=== PATIENT | female | born 1990 | race Caucasian/White ===

== ENCOUNTER 2024-04-16 18:10 | Emergency (ER) | payer OTHER, SELFPAY ==
[2024-04-16 18:23] VITALS: BP 137/59; PULSE 81; RESP 20; TEMP 37.1; O2SAT 99; BMI 31.6
--- NOTE | 2024-04-16 18:33 | DI.US.S_ITS ---
PROCEDURE: US PERIPH VENOUS LOW EXTREM RT INDICATIONS: TENDER LUMP INF/MED THIGH TECHNIQUE: Real-time imaging, as well as color and pulse Doppler interrogation, were performed of the lower extremity deep veins from the inguinal ligament to the popliteal fossa, with documentation of the visualized calf veins. COMPARISON: None. FINDINGS: The common femoral, femoral, popliteal, and the visualized calf veins are normally compressible, and free of intraluminal thrombus. Color and pulse Doppler demonstrate normal phasic intraluminal flow. There is normal augmentation response to distal compression maneuver. Incidental note superficial vein thrombosis in the lateral thigh. IMPRESSION: No findings of lower extremity deep venous thrombosis. Focal superficial thrombophlebitis. Dictated by: Julia Child M.D. on 04/16/2024 at 19:34 Approved by: Julia Child M.D. on 04/16/2024 at 19:35
--- NOTE | 2024-04-16 19:41 | ED_ITS ---
HPI - Extremity Problem General Chief complaint: Extremity Problem,Nontraumatic Stated complaint: 18wk Preg, Bump on R Leg Concerned About Clot Time Seen by Provider: 04/16/24 18:38 Source: patient Mode of arrival: Ambulatory History of Present Illness HPI Narrative: 34-year-old female at 18 weeks gestational age presents for small lump on inner right leg. Patient states that she called the advice line and was told to come in for evaluation of blood clot. Patient denies accident, injury, history of blood clots. Followed this by Daina Bonner CNM Related Data Previous Rx's Medication Instructions Recorded hydrocodone 10 mg-chlorpheniramine 5 ml PO BID #90 mL 10/05/16 8 mg/5 mL oral susp extend.rel 12hr (Tussionex Pennkinetic ER) oseltamivir 75 mg capsule (Tamiflu) 75 mg PO BID #10 caps 10/05/16 Allergies Allergy/AdvReac Type Severity Reaction Status Date / Time amoxicillin [AMOXICILLIN] Allergy Severe ANAPHYLAXIS Unverified 10/24/17 13:05 clavulanic acid Allergy Severe ANAPHYLAXIS Unverified 10/24/17 13:05 [CLAVULANIC ACID] Patient History Social History Smoking Status: Never smoker Smoking Status: Never smoker Substance Use Type: does not use Exam Initial Vital Signs Initial Vital Signs: Vital Signs Temperature 98.7 F 04/16/24 18:23 Pulse Rate 81 04/16/24 18:23 Respiratory Rate 20 04/16/24 18:23 Blood Pressure 137/59 L 04/16/24 18:23 Pulse Oximetry 99 04/16/24 18:23 Oxygen Delivery Method Room Air 04/16/24 18:23 Const: Awake, alert, no acute distress, nontoxic appearing MSK: no edema, full range of motion, pulses equal, marble-sized mobile lump inner R knee Skin: Warm, Dry, intact, no rashes Neuro: AO x3, CN II-XII grossly intact, moves all extremities Course Orders Ordered: ED Orders 04/16/24 18:33 US periph venous low extrem rt Stat Vital Signs Vital signs: Vital Signs - 8 hr 04/16/24 19:50 Pulse Rate 71 Respiratory Rate 16 Blood Pressure 101/56 L Pulse Oximetry 95 Oxygen Delivery Method Room Air MDM - Extremity (Nontraumatic) Imaging Data US - DVT: Radiologist's Impression: PROCEDURE: US PERIPH VENOUS LOW EXTREM RT INDICATIONS: TENDER LUMP INF/MED THIGH TECHNIQUE: Real-time imaging, as well as color and pulse Doppler interrogation, were performed of the lower extremity deep veins from the inguinal ligament to the popliteal fossa, with documentation of the visualized calf veins. COMPARISON: None. FINDINGS: The common femoral, femoral, popliteal, and the visualized calf veins are normally compressible, and free of intraluminal thrombus. Color and pulse Doppler demonstrate normal phasic intraluminal flow. There is normal augmentation response to distal compression maneuver. Incidental note superficial vein thrombosis in the lateral thigh. IMPRESSION: No findings of lower extremity deep venous thrombosis. Focal superficial thrombophlebitis. Dictated by: Julia Child M.D. on 04/16/2024 at 19:34 Approved by: Julia Child M.D. on 04/16/2024 at 19:35 MDM Narrative Medical decision making narrative: Well-appearing patient with isolated, marble-sized lump on inner right knee. Limbs equal in size. US shows no DVT, focal area of superficial thrombophlebitis in area of patient's concern. Discussed case with Dr. Feng of on-call OB, who recommended warm compresses and daily baby aspirin. Patient informed of imaging results and OB recommendations. Will follow up with her ancient art curator. Discharge Plan Departure Patient Disposition: Home Clinical Impression: Superficial thrombophlebitis Instructions: DI for Superficial Thrombophlebitis Activity Restrictions/Additional Instructions: Your ultrasound today shows that you have a very tiny isolated superficial blood clot called ?superficial thrombophlebitis? in 1 of your tiny veins. This usually fixes itself on its own and it was not dangerous or deadly. Are OBGYN on-call recommends daily warm compresses 3-4 times per day and starting a daily baby aspirin. Reach out to your ancient art curator for follow up. Prescriptions: No Action oseltamivir [Tamiflu] 75 MG capsule 75 mg PO BID Qty: 10 0RF hydrocodone-chlorpheniramine [Tussionex Pennkinetic ER] 115 ML suspension,extended rel 12 hr 5 ml PO BID Qty: 90 0RF Referrals: Rach Retana ARNP [Primary Care Provider] - Stand Alone Forms: Patient Portal/API
[2024-04-16 19:50] VITALS: BP 101/56; PULSE 71; RESP 16; O2SAT 95
== END 2024-04-16 19:58 | disposition home or self-care (01) ==
PROVIDERS: Emergency Provider Emergency Medicine; PCP Nurse Practitioner
DX: O22.22 Superficial thrombophlebitis in pregnancy, second trimester (principal); Z3A.18 18 weeks gestation of pregnancy
CPT/HCPCS: 93971; 99281; 99283

== ENCOUNTER → 2024-05-02 08:30 | Outpatient (CLI) | payer OTHER, SELFPAY ==
--- NOTE | 2024-05-02 | DI.US.S_ITS ---
PROCEDURE: US OB >= 14 WEEKS FETUS INDICATIONS: ANATOMY OUTSIDE/PRIOR DATING DATA: Last menstrual period (LMP): 12/20/2023. LMP-based estimated date of delivery (BLAIR): 09/16/2024. First dating scan (date and location): 02/22/2024. Estimated date of delivery (BLAIR) from first dating scan: 09/16/2024. The calculations are made using the working BLAIR of 09/16/2024. TECHNIQUE: Real-time scanning was performed of the fetus, with image documentation and biometric measurements. Endovaginal scanning: No COMPARISON: None. FINDINGS: General: A single living intrauterine gestation is present. Presentation: Vertex. Placenta: Placental position is posterior , without previa. Amniotic fluid index: 13.0 cm, normal range is 5-24 cm. Single deepest vertical pocket is 4.3 cm. heart rate: 136 beats per minute. Maternal cervical canal: 4.9 cm long. Normal lower limit is 2.5 cm. biometrics: Biparietal diameter: 5.0 cm, 21 week 1 day Head circumference: 18.5 cm, 20 week 6 day Abdominal circumference: 15.5 cm, 20 week 5 day Femur length: 3.2 cm, 20 week 0 day Clinically estimated gestational age: 20 week 3 day Composite gestational age from present scan: 20 week 5 day Estimated weight and percentile: 353 g, 45 percentile Anatomic survey: Neuro: Ventricles are non-dilated at less than 10 mm. Cisterna magna is normal at 3-11 mm. Cerebellum is normal in size and morphology. Nuchal skin fold: Normal at less than 6 mm between 14-21 weeks gestational age. Face: Nose and lips, facial profile are normal. Spine: No evidence for spina bifida. Heart: 4-chambered heart is present, with normal ventricular outflow tracts. Diaphragm: Diaphragm is intact. Stomach: Left-sided stomach is present. Kidneys: Left renal caliectasis, 5.1 cm Cord: 3-vessel cord has orthotopic insertion. Bladder: Normal in size. Extremities: All 4 extremities identified. IMPRESSION: Single live intrauterine consistent with 20 week 5 day gestation by current ultrasound. Left renal caliectasis. Remainder of the anatomic survey within normal limits. Approved by: Ke Walter M.D. on 05/02/2024 at 17:16
== END ==
LOC: US 08:30
PROVIDERS: Referring Provider Nurse Practitioner Obstetrics & Gynecology; Visit Provider Nurse Practitioner Obstetrics & Gynecology
DX: Z34.92 Encounter for supervision of normal pregnancy, unspecified, second trimester (principal); Z3A.20 20 weeks gestation of pregnancy
CPT/HCPCS: 76811; 76817

== ENCOUNTER → 2024-07-25 08:35 | Outpatient (CLI) | payer OTHER, SELFPAY ==
--- NOTE | 2024-07-25 08:36 | DI.US.S_ITS ---
PROCEDURE: US OB FOLLOW UP INDICATIONS: FOLLOW UP RENAL FINDINGS OUTSIDE/PRIOR DATING DATA: Last menstrual period (LMP): 12/20/23. LMP-based estimated date of delivery (BLAIR): 340. First dating scan (date and location): 02/22/24. Estimated date of delivery (BLAIR) from first dating scan: 09/16/24. The calculations are made using the working BLAIR of 09/16/24. TECHNIQUE: Real-time scanning was performed of the fetus, with image documentation. Endovaginal scanning: No COMPARISON: [facility], , US OB >= 14 WEEKS FETUS, 05/02/2024, 8:50. FINDINGS: A single living intrauterine gestation is present. Presentation: Vertex. Placenta: Placental position is posterior and fundal, without previa. Amniotic fluid index: 15.3 cm, normal range is 5-24 cm. Single deepest vertical pocket is 4.7 cm. heart rate: 137 beats per minute. Maternal cervical canal: Closed at 3.9 cm long. Normal lower limit is 2.5 cm. Report any funneling of internal cervical os: % of canal length, shape (U or V), width or any U-shaped funneling. Clinically estimated gestational age: 32 weeks three days Normalization of left renal pelvis diameter. Morphology of both kidneys appears normal. IMPRESSION: Single live intrauterine . Normalization of previously seen renal pelviectasis. No further follow-up needed. Dictated by: Hawa Weir M.D. on 07/25/2024 at 21:28 Approved by: Hawa Weir M.D. on 07/25/2024 at 21:32
== END ==
PROVIDERS: Referring Provider Nurse Practitioner Obstetrics & Gynecology; Visit Provider Nurse Practitioner Obstetrics & Gynecology
DX: O28.3 Abnormal ultrasonic finding on antenatal screening of mother (principal); Z3A.32 32 weeks gestation of pregnancy
CPT/HCPCS: 76816

== ENCOUNTER 2024-09-14 16:49 | Inpatient (IN) | payer OTHER, SELFPAY ==
--- NOTE | 2024-09-14 17:29 | PM.OBHP.1 ---
OB HPI Date/Time Date of admission: 09/14/24 Date Patient Seen: 09/14/24 Time Patient Seen: 17:30 History of Present Condition Chief complaint: obs : 1 Para: 0 Estimated Date of Delivery: 09/16/24 Estimated Gestational Age (weeks): 39.5 Narrative: Piedad Martinez is a 34 year old female @ 39wks 5 days by 10wk US (discordant w/ LMP). Has has slowly, but progressively increasing contractions for the last 4 days. Now breathing through strong contractions every 5 minutes. Lots of FM and mucous discharge with some dark red blood in it. No LOF. Uncomplicate dprenatal care with CNMs. Desires low intervention . Mother and partner, Letone, are present and supportive. History of Present care: good care, initiated at week # (10), number of visits (9) and pounds weight gain (38) Dating criteria: based on 1st trimester US only Ultrasounds: normal mid trimester US Obstetrical complications: none Medical complications: none Preadmission Labs Blood type: 0 (-) negative -: Antibody screen: negative, GBS status: negative, HBsAG: negative, HIV: negative and RPR/VDLR: negative -: Chlamydia screen: not detected and Gonorrhea screen: not detected -: Rubella: immune and Varicella: not immune HCT: 35.5 HCAB: negative Cell-free DNA: Negative 1 hr GTT: 125 Evaluation Evaluation Baseline heart rate: 155 Variability: Moderate (11-25) monitor accelerations: Absent Monitor Decelerations: Variable (single, sadia to 120) Contraction Frequency (minutes): 5 Uterine Contraction Intensity: Moderate Status: Category ll Dilation (cm): 3 Effacement (%): 90 Dilation: 3-4 cm Effacement: >/=80% station: -2 Position of cervix: posterior Consistency: soft Dubose score: 8 PFSH Medical History (Updated 09/14/24 @ 17:38 by Daina Bonner CNM) Anxiety Family History (Updated 09/14/24 @ 17:39 by Daina Bonner CNM) Mother Cancer Social History (Updated 09/14/24 @ 17:39 by Daina Bonner CNM) marital status: unmarried,living together household members: significant other lives independently: Yes caregiver/support person: No housing: house education level: high school occupational status: employed Smoking Status: Never smoker Meds Home Medications and Allergies Home Medications Medication Instructions Recorded Confirmed Type No Known Home Medications 09/14/24 09/14/24 History Allergies Allergy/AdvReac Type Severity Reaction Status Date / Time amoxicillin [AMOXICILLIN] Allergy Severe ANAPHYLAXIS Verified 09/14/24 19:42 Review of Systems Review of Systems ROS: Yes All systems reviewed with the patient and are negative except as otherwise documented OB Exam Vital signs Blood Pressure: 121/74 Pulse Rate: 86 Temperature: 97.9 F Resp Effort & Inspection: normal respiratory effort and able to speak in complete sentences Auscultation: clear to auscultation bilaterally Cardio Rate: regular rate Rhythm: regular rhythm Presentation: vertex Objective Labs 09/14/24 19:34 Assessment and Plan Assessment and Plan Assessment and Plan narrative: A: Term nullipara Approaching active labor No indication for antibiotics Rh negative Cat II FHR P: Admit, routine orders with continuous EFM. Expectant management of labor. Reassess in 4 hours or sooner, PRN. Time-Based Coding :: [TOTAL MINUTES] spent with patient and on the chart (including review of chart, obtaining history, exam, reviewing outside data, placing orders, documenting exam and treatment plan, and counseling patient) on [DATE].
[2024-09-14 17:42] VITALS: BP 121/74; PULSE 86; TEMP 36.6
[2024-09-14 18:53] VITALS: BP 121/74
[2024-09-14] MEDS: ONDANSETRON 4 MG/2 ML INJ IV (19:43)
[2024-09-14 19:58] LABS: Add Manual Diff / Slide Review NO; Basophils Absolute Auto 0 /uL (0-100); Basophils Percent Auto 0.1 % (0-2); Eosinophils Absolute Auto 0 /uL (0-450); Eosinophils Percent Auto 0.2 % (2-4); Hematocrit 39.7 % (36-46); Hemoglobin 13.7 g/dL (12.0-16.0); Lymphocytes Absolute Auto 1500 /uL (1100-4500); Lymphocytes Percent Auto 11.5 % (25-40); Mean Corpuscular HGB Conc 34.6 % (30-36); Mean Corpuscular Hemoglobin 33.4 PG (26-34); Mean Corpuscular Volume 96.5 fL (80-100); Monocytes Absolute Auto 800 /uL (0-900); Monocytes Percent Auto 5.9 % (3-14); Neutrophils Absolute Auto 10800 /uL (1500-7000); Neutrophils Percent Auto 82.3 % (50-75); Platelet Count 251 X10^3/uL (150-400); Red Blood Cell Count 4.11 X10^6/uL (4.0-5.2); Red Cell Distribution Width 13.2 % (11.6-14.8); White Blood Cell Count 13.2 X10^3/uL (4.5-11.0)
--- NOTE | 2024-09-14 21:15 | PM.OBPNLAB ---
Date/Time Date Patient Seen: 09/14/24 Time Patient Seen: 21:15 Pain Control Pain control: other (NO2) Comments: Breathing through strong contractions every 2 minutes. Feeling more pressure. Struggling to cope and using NO2 with moderate relief. VS: BP 118/57, HR 73, RR 20, T 36.8C Oral Pelvic Exam Dilation (cm): 4 Effacement (%): 90 station: -1 Amniotic membrane status: Intact Contractions Contractions on admission: regular Monitor mode: External Contraction frequency (min): 2 (occasional runs of tachysystole) Contraction duration (min): 1 Contraction pattern: Regular Contraction intensity: Moderate Status status: Category ll (overall reassuring) Heart Rate Baseline: 135 Monitor Accelerations: Present Monitor Decelerations: Variable (occasional) Monitor Variability: Moderate Assessment and Plan Assessment: active labor Plan: continuous present management
[2024-09-14] MEDS: LACTATED RINGERS 1,000 ML 100 ML IV ×2 (21:40→22:30)
--- NOTE | 2024-09-14 22:49 | P.PCN_ITS ---
Regional Block Pre-procedure Procedure: Continuous Lumbar Epidural for L&D Attending OB provider: Daina Bonner PMH/ROS narrative: requesting SAMMY for labor pain. PSH/Anesthesia history narrative: [place] teeth - pt reports max dose of local anesthetic wearing off before surgeon was able to extract all wisdom teeth. Exam narrative: See pre-anesthesia evaluation form. ASA Class: II Labs: Hct 39.7 % (36-46) 09/14/24 19:34 Plt Count 251 X10^3/uL (150-400) 09/14/24 19:34 Medications: Current Medications Generic Name Dose Route Start Last Admin Trade Name Freq PRN Reason Stop Dose Admin Calcium Carbonate 1,000 mg 09/14/24 17:27 Calcium Carbonate 500 Mg Tab PO Q2HR PRN Dyspepsia Carboprost Tromethamine 250 mcg 09/14/24 17:27 Carboprost 250 Mcg/Ml Ampul IM Q90M PRN Bleeding Diphenhydramine HCl 25 mg 09/14/24 22:13 Diphenhydramine 50 Mg/Ml Vial IV 09/15/24 22:13 Q3HR PRN PRURITUS Fentanyl 100 mcg 09/14/24 17:27 Fentanyl 100 Mcg/2 Ml Inj IV Q1H PRN Pain, Severe (7-10) Oxytocin/Lactated Ringer's 30 unit in 500 mls @ 200 mls/hr 09/14/24 17:27 Oxytocin Premix IV CONT PRN Bleeding Protocol Tranexamic Acid 1,000 mg/ 100 mls @ 600 mls/hr 09/14/24 17:27 Sodium Chloride IV NOW PRN Bleeding Lactated Ringer's 1,000 mls @ 100 mls/hr 09/14/24 17:30 09/14/24 21:40 Lactated Ringers IV 09/15/24 03:29 100 mls/hr CONT [place] Administration Lidocaine HCl 20 ml 09/14/24 17:27 Lidocaine 1% 20 Ml INJ INTRA-OP PRN Post Delivery Methylergonovine Maleate 0.2 mg 09/14/24 17:27 Methylergonovine 0.2 Mg Tablet PO Q6HR PRN Heavy Bleeding Methylergonovine Maleate 0.2 mg 09/14/24 17:27 Methylergonovine 0.2 Mg/Ml Vial IM NOW PRN Bleeding Metoclopramide HCl 10 mg 09/14/24 22:13 Metoclopramide 10 Mg/2 Ml Inj IV 09/15/24 22:13 Q4H PRN Nausea Mineral Oil 30 ml 09/14/24 17:27 Mineral Oil 30 Ml Udc TOP PRN PRN Version Misoprostol 800 mcg 09/14/24 17:27 Misoprostol 200 Mcg Tablet WA NOW PRN Bleeding Misoprostol 400 mcg 09/14/24 17:27 Misoprostol 200 Mcg Tablet SL NOW PRN Bleeding Nalbuphine HCl 5 mg 09/14/24 22:13 Nalbuphine 20 Mg/Ml Ampul IV Q6H PRN PRURITIS Naloxone HCl 0.2 mg 09/14/24 17:27 Naloxone 0.4 Mg/Ml Vial IV Q2MIN PRN Opiate Reversal Naloxone HCl 0.4 mg 09/14/24 22:13 Naloxone 0.4 Mg/Ml Vial IV Q2MIN PRN Opiate Reversal Ondansetron HCl 4 mg 09/14/24 17:27 09/14/24 19:43 Ondansetron 4 Mg/2 Ml Inj IV 4 mg Q4HR PRN Administration Nausea And Vomiting Ondansetron HCl 4 mg 09/14/24 22:13 Ondansetron 4 Mg/2 Ml Inj IV 09/15/24 22:13 Q6HR PRN Nausea Oxytocin 10 unit 09/14/24 17:27 Oxytocin 10 Unit/Ml Vial IM NOW PRN Bleeding Allergies: Allergies Allergy/AdvReac Type Severity Reaction Status Date / Time amoxicillin [AMOXICILLIN] Allergy Severe ANAPHYLAXIS Verified 09/14/24 19:42 Procedure Insertion date: 09/14/24 Insertion time: 22:33 Prep/Local: 1% lidocaine (3mL to skin. CHG for skin prep.) Interspace: L2/3 Patient position: sitting Needle: 18 gauge Hustead Loss of resistance with: saline KUMAR at (cm): 7 Catheter placed at SKIN (cm): 12 Catheter in SPACE (cm): 5 Insertion: No CSF, No Blood, No Paresthesia with insertion, No Paresthesia with injection and No Test dose reaction Initial Medications TEST DOSE time: 22:35 TEST DOSE: 1.5% lidocaine with epinephrine 1:200k (mL): 3 BOLUS DOSE time: 22:41 BOLUS DOSE (mL): 10 BOLUS DOSE med: other (infusate) Infusion INFUSION: 0.125% bupivacaine and with fentanyl 2 mcg/mL Initial rate (mL/hr): 8 Subsequent interventions: See intra-op record from 09/15/24 for epidural dosing during . -ARIEL KEMP Post-procedure Anesthesia date START: 09/14/24 Anesthesia time START: 21:56
[2024-09-14] MEDS: TERBUTALINE 1 MG/ML VIAL 0.25 MG SUBCUT (23:07)
[2024-09-14] MEDS: ePHEDrine 50 MG/ML VIAL 10 MG IV (23:08)
[2024-09-15] MEDS: ePHEDrine 50 MG/ML VIAL 10 MG IV (00:47)
[2024-09-15] MEDS: LACTATED RINGERS 1,000 ML 100 ML IV ×2 (01:55→07:58)
--- NOTE | 2024-09-15 04:18 | PM.OBPNLAB ---
Date/Time Date Patient Seen: 09/15/24 Time Patient Seen: 04:18 Pain Control Pain control: epidural Comments: Epidural was requested around 2200 and placed at 2230. FHR with marked variability immediately prior to and after placement. Upon lying down after the procedure, tachysystole began followed by a prolonged FHR deceleration at 2257. Moderate amount of bloody show was noted and CE of 5-6/90/-1 at that time. Deceleration resolved with position changes, IVFB, O2 per NRB mask, terbutaline and ephedrine. D/t coincidence with maternal heart rate, an FSE was placed. She has since been able to rest comfortably. Continuing to feel increasing rectal pressure and lots of FM. Small bloody show. Mother and partner remain present and supportive. VS: BP 114/66, HR 109, T 36.8C Oral Pelvic Exam Dilation (cm): 6.5 Effacement (%): 90 station: -1 Amniotic membrane status: Ruptured Contractions Monitor mode: External Pitocin rate (mU/min): 0 Contraction frequency (min): 3 (1-4) Contraction duration (min): 1 Contraction intensity: Moderate Status status: Category ll Heart Rate Baseline: 170 Monitor Accelerations: Present Monitor Decelerations: Variable (not recurrent) Monitor Variability: Moderate Assessment and Plan Assessment: active labor Plan: continuous present management Comments: Continue position changed and expectant management of labor. Will conside rpitocin if contractions space. Reassess in 4 hours or sooner, PRN.
[2024-09-15] MEDS: FENT 2MCG/ML BUPIV 0.125% EPI 200 MCG/100 ML PLAST..BAG 8 MCG EPIDURAL (04:21)
--- NOTE | 2024-09-15 06:04 | P.PNOB_ITS ---
Date/Time Date Patient Seen: 09/15/24 Time Patient Seen: 05:58 Pain Control Pain control: epidural Comments: Progressively increasing tachycardia. Piedad remains comfortable with an epidural, but is appropriately anxious about her baby's wellbeing after all of the interventions she has been cooperating with to help improve his HR. She is agreeable to a surgical at this time. VS: BP 103/62, HR 105, T 37C Temporal Pelvic Exam Dilation (cm): 7 Effacement (%): 90 station: -1 Amniotic membrane status: Leaking (clear, blood tinged) Contractions Monitor mode: External Pitocin rate (mU/min): 0 Contraction frequency (min): 2 (1-4 occasional runs of tachysystole) Contraction duration (min): 1 Contraction pattern: Regular Contraction intensity: Moderate Status status: Category ll Heart Rate Baseline: 190 Monitor Accelerations: Present Monitor Decelerations: Variable Monitor Variability: Moderate Comments: FSE in place Assessment and Plan Assessment: active labor and other ( intolerance of labor) Plan: Comments: OB Back-up/ consulted for primary for intolerance of labor and is on his way in. Will obtain informed consent for primary . mobile practice lead notified and initiating emergency process (notifying housekeeper home, anesthesia and OR crew). Place pre-op orders while waiting and remove FSE immediately prior to moving to the OR.
[2024-09-15] MEDS: CITRIC ACID/SODIUM CITRATE 15 ML SOLUTION 30 ML PO (06:20)
[2024-09-15] MEDS: CLINDAMYCIN 900 MG/50 ML PIGGYBACK 50 MG IV (06:45)
[2024-09-15] MEDS: AZITHROMYCIN 500 MG in DEXTROSE 5% IN WATER 250 ML 250 MG IV (06:55)
[2024-09-15] MEDS: GENTAMICIN 480 MG in SODIUM CHLORIDE 0.9% 100 ML 112 MG IV (07:00)
--- NOTE | 2024-09-15 07:19 | SUR.OPER ---
Supine on Padded OR bed, head on pillow, safety belt at thigh, arms secured on padded arm boards at <90 degrees abduction. Bump under right buttock. Legs uncrossed with pillow under knees, gel pad to heels, tape over blanket to lower legs.
--- NOTE | 2024-09-15 07:37 | SUR.OPER ---
Viable baby born at 0713 on 09/15/2024.
--- NOTE | 2024-09-15 07:38 | PM.PROC.1 ---
Procedures Date/Time Date of procedure: 09/15/24 Time of procedure: 07:13 General Procedure description: Emergency Medical Service Coordinator Documentation I assisted the OB instructional paraprofessional in the section for this patient. My responsibilities included retracting and suctioning, providing fundal pressure during delivery and following with suture during closure. Please see the OB's note for details of the surgery.
[2024-09-15] MEDS: TRANEXAMIC ACID 1,000 MG in SODIUM CHLORIDE 0.9% 100 ML 600 MG IV (07:48)
[2024-09-15] MEDS: ACETAMINOPHEN IV 1,000 MG/100 ML VIAL 400 MG IV (08:14)
--- NOTE | 2024-09-15 08:41 | PM.OBCS.1 ---
Operative Date/Time/Diagnoses Date of procedure: 09/15/24 Time of procedure: 07:00 Pre-op diagnosis: tachyardia, nrFHT Post-op diagnosis: same Procedure & Clinicians Procedure: Primary Low Transverse Section Same procedure as scheduled: Yes Indications: Persistent tachycardia, nrFHT Surgeon: Oziel Urbano Click Yes if Unassisted: No Equipment Service Associate: Daina Bonner Reason for Equipment Service Associate: Equipment Service Associate required for the safe, effective, and timely completion of this surgery. The assistant professor of art was necessary to retract upon entry into the abdomen and uterus. Assisted with delivery of the infant with fundal pressure. Assisted with closure with retraction, clipping of suture, and closure of the contralateral fascia Anesthesia Type: Spinal Operative Notes Findings: Viable male infant in cephalic position. Closure Type: primary Specimen(s): cord blood and cord pH Intraoperative meds administered: Pitocin and Tranexamic acid Estimated Blood Loss (mL): 1,289 Blood products transfused: none Procedure in detail: Patient was taken to the operating room where epidural anesthesia was found to be adequate. She was then prepared and draped in the usual sterile fashion in the dorsal supine position with a leftward tilt. A Pfannenstiel incision was then made with a scalpel and carried through to the underlying layer of fascia sharply. The fascia was nicked in the midline, and the incision extended laterally with Gauthier scissors. The superior aspect of the fascial incision was then grasped with Kermit clamps, elevated, and the underlying rectus muscles dissected off bluntly. Attention was then turned to the inferior aspect of the incision which, in similar fashion, was grasped, tented up with Kermit clamps, and rectus muscles dissected off bluntly. The rectus muscles were then in the midline, and peritoneum identified, tented up, and entered sharply with Metzenbaum scissors. The peritoneal opening was then extended superiorly and inferiorly with good visualization of the bladder. The bladder blade was then inserted and the lower uterine segment incised in a transverse fashion with the scalpel. The uterine incision was then extended laterally with blunt traction. Access to the pelvic cavity was limited, so a Maylard incision was made to the right side rectus abdominis. Upon entering the amniotic sac there was moderate amount of light meconium-stained amniotic fluid. The bladder blade was removed and the infant head delivered atraumatically but with some difficulty due to OP deflexed positioning. The nose and mouth were suctioned with bulb suction, and nuchal x2 was reduced without difficulty. The remainder of the body delivered without difficulty. The cord was clamped and cut, and the was handed off to the waiting care team. Cord blood was collected and sent. The placenta was then removed by manual expression; the uterus was exteriorized and cleared of all clots and debris. A right side extension of the uterine incision was noted down to the level of the cervix. Dr. Stacy joined to assist with closure of the uterine incision and extension, which were repaired with 0 Vicryl in a running, locked fashion. A second layer of same suture was used to obtain excellent hemostasis. Tubes and ovaries were examined and were found to be normal, and the uterus returned to the abdomen. The gutters were cleared of all clots. The fascia was reapproximated with 1-0 Vicryl in a running fashion. The subcutaneous layer was copiously irrigated with warm normal saline. The subcutaneous fat was reapproximated with 3-0 Vicryl. The skin was closed with 3-0 Monocryl. Steri-Strips were applied to the incision and a pressure dressing was placed. The uterus was expressed of a small amount of old blood. Sponge, lap, and needle counts were correct x2. The patient tolerated the procedure well and was taken to the recovery room in stable condition. Complications: other (Right-sided uterine incision extension to level of cervix, hemorrhage) Baby 1: Delivery Date: 09/15/24 Delivery Time: 07:13 Infant Gender: Male Presentation: face Position: Occiput Posterior Placental Delivery Description: Spontaneous Cord Vessel Description: 3 Vessels score (1 min): 9 score (5 min): 9 weight: 9 lb 1.399 oz Post-operative Condition: stable Disposition: PACU Aftercare: routine postop
[2024-09-15 08:45] VITALS: BP 97/64; PULSE 93; RESP 19; TEMP 36.4; O2SAT 97
[2024-09-15 08:50] VITALS: BP 106/63; PULSE 95; RESP 17; O2SAT 98
[2024-09-15 08:55] VITALS: BP 114/74; PULSE 100; RESP 16; O2SAT 97
[2024-09-15 09:00] VITALS: BP 104/65; PULSE 97; RESP 16; O2SAT 97
[2024-09-15 09:05] VITALS: BP 126/24; PULSE 100; RESP 16; O2SAT 97
[2024-09-15] MEDS: OXYCODONE IR 5 MG TABLET PO (09:09)
[2024-09-15 09:10] VITALS: BP 105/84; PULSE 103; RESP 16; TEMP 36.4; O2SAT 96
[2024-09-15] MEDS: ACETAMINOPHEN 325 MG TABLET 650 MG PO ×2 (14:33→20:29)
[2024-09-15] MEDS: KETOROLAC 30 MG/ML VIAL IV (14:34)
[2024-09-15] MEDS: LANOLIN OINT 7 GM 1 APPLIC TOP (14:37)
[2024-09-15] MEDS: IBUPROFEN 600 MG TABLET PO (20:38)
[2024-09-16] MEDS: OXYCODONE IR 5 MG TABLET PO ×4 (00:22→18:38)
[2024-09-16] MEDS: ACETAMINOPHEN 325 MG TABLET 650 MG PO ×4 (02:49→21:13)
[2024-09-16] MEDS: IBUPROFEN 600 MG TABLET PO ×4 (02:49→21:15)
--- NOTE | 2024-09-16 07:59 | PM.OBPN.1 ---
Subjective - OB Subjective Patient comments: no complaints, pain well controlled, tolerating diet and flatus present baby status: doing well and nursing well Date Patient Seen: 09/16/24 Time Patient Seen: 12:50 Exam Vital Signs (past 8 hours): Oxygen Delivery Method Room Air Narrative Exam Narrative: General: Well-appearing, well-nourished, no distress HEENT: Moist mucous membranes, no pallor CV: Regular rate and rhythm, no murmur auscultated Resp: CTAB, comfortable work of breathing Abdomen: Soft, bowel sounds present, fundus firm below umbilicus with appropriate tenderness, incision c/d/i Extremities: No edema, no calf tenderness or evidence of DVT Objective Labs 09/16/24 07:54 Assessment & Plan Assessment and Plan (1) delivery delivered: Status: Acute (2) hemorrhage: Status: Acute Plan day: 1 plan OB: routine postop care Comments: POD #1 s/p pLTCS Clinically stable, recovering well Pain management as needed support s/p consult Encourage ambulation, flatus/BM prior to discharge Bleeding appropriate for course, monitor Likely discharge home late this evening vs tomorrow AM Time-Based Coding :: 20 minutes spent with patient and on the chart (including review of chart, obtaining history, exam, reviewing outside data, placing orders, documenting exam and treatment plan, and counseling patient) on 09/16/2024.
[2024-09-16] MEDS: DOCUSATE 100 MG CAPSULE PO ×2 (08:07→21:14)
[2024-09-16] MEDS: PRENATAL VIT,CALC/IRON/FOLIC 1 TABLET 1 TAB PO (08:07)
[2024-09-16 08:13] LABS: Add Manual Diff / Slide Review NO; Basophils Absolute Auto 0 /uL (0-100); Basophils Percent Auto 0.2 % (0-2); Eosinophils Absolute Auto 0 /uL (0-450); Eosinophils Percent Auto 0.1 % (2-4); Hematocrit 29.4 % (36-46); Hemoglobin 10.2 g/dL (12.0-16.0); Lymphocytes Absolute Auto 1800 /uL (1100-4500); Lymphocytes Percent Auto 11.9 % (25-40); Mean Corpuscular HGB Conc 34.6 % (30-36); Mean Corpuscular Hemoglobin 33.7 PG (26-34); Mean Corpuscular Volume 97.4 fL (80-100); Monocytes Absolute Auto 800 /uL (0-900); Neutrophils Absolute Auto 12400 /uL (1500-7000); Neutrophils Percent Auto 82.8 % (50-75); Platelet Count 167 X10^3/uL (150-400); Red Blood Cell Count 3.02 X10^6/uL (4.0-5.2); Red Cell Distribution Width 13.4 % (11.6-14.8); White Blood Cell Count 14.9 X10^3/uL (4.5-11.0)
[2024-09-16] MEDS: RHO(D) IMMUNE GLOBULIN 1,500 UNIT SYRINGE 1500 UNIT IM (18:44)
--- NOTE | 2024-09-17 07:53 | P.DS_ITS ---
Discharge Providers Provider Date of admission: 09/14/24 16:49 Discharge Date: 09/17/24 Consults: 09/16/24 14:12 Consult to [employer]er [employer] Routine Comment: Discharge provider: Oziel Urbano MD Summary Hospital Course Date Patient Seen: 09/17/24 Time Patient Seen: 07:45 Diagnoses: # delivery delivered #immediate hemorrhage # anemia Hospital Course: Admitted for normal labor on 09/14/2024. Progressed to 7cm dilation with labor course complicated by persistent/worsening tachycardia necessitating section for non-reassuring heart tracing remote from delivery. She had a primary delivery of a live male infant complicated by immediate hemorrhage. Her course was uncomplicated and she was asymptomatic in terms of her anemia so did not require transfusion. At discharge patient is ambulating well, tolerating normal diet, breast-feeding without difficulty, and pain is adequately controlled. She reports bleeding is less than normal menses. Peripartum Data Infant Delivery Method: Section Procedures: Primary low transverse delivery complications: none [place] 1: Gender: Male Disposition of : home Discharge Diagnosis (1) delivery delivered: Status: Acute (2) hemorrhage: Status: Acute (3) anemia: Status: Acute Status at Discharge Cognitive/behavioral status at discharge: at baseline, oriented Functional status at discharge: independent ambulation Overall status at discharge: patient is progressing back to baseline Time Spent with Patient Time attestation: Total time spent providing and/or coordinating discharge services: 20 minutes Objective Labs 09/16/24 07:54 Labs: Laboratory Results - last 24 hr 09/16/24 07:54 WBC 14.9 H RBC 3.02 L Hgb 10.2 L Hct 29.4 L MCV 97.4 MCH 33.7 MCHC 34.6 RDW 13.4 Plt Count 167 Neut % (Auto) 82.8 H Lymph % (Auto) 11.9 L [place] % (Auto) 5.0 Eos % (Auto) 0.1 L Baso % (Auto) 0.2 Neut # (Auto) 14314 H Lymph # (Auto) 1800 [place] # (Auto) 800 Eos # (Auto) 0 Baso # (Auto) 0 Exam Vital Signs (past 8 hours): Oxygen Delivery Method Room Air Narrative Exam Narrative: General: Well-appearing, well-nourished, no distress HEENT: Moist mucous membranes, no pallor CV: Regular rate and rhythm, no murmur auscultated Resp: CTAB, comfortable work of breathing Abdomen: Soft, bowel sounds present, fundus firm below umbilicus with appropriate tenderness, incision clean/dry/intact Extremities: No edema, no calf tenderness or evidence of DVT Discharge Plan Discharge Plan Patient Disposition: Home Discharge orders & Medications Prescriptions: New acetaminophen 325 mg Tablet 650 mg PO Q6HR PRN (Reason: Pain, Mild (1-3)) Qty: 90 1RF ibuprofen 600 mg Tablet 600 mg PO Q6HR PRN (Reason: Pain, Mild (1-3)) Qty: 90 1RF Purelan Cream 1 applic topical PRN PRN (Reason: Tenderness) Qty: 7 3RF oxycodone 5 mg Tablet See Rx Instructions .ROUTE .COMPLEX PRN (Reason: Pain, Moderate (4-6)) Qty: 15 0RF Rx Instructions: Take 1-2 tabs every 6 hours as needed for moderate-severe pain polyethylene glycol 3350 17 gram/dose powder 17 g PO DAILY Qty: 510 1RF ferrous sulfate 325 mg (65 mg iron) tablet 325 mg PO Q OTHER DAY Qty: 60 1RF Follow up/Referrals: Daina Bonner CNM [[employer] Specialist] - 1 Week (Followup in 1 week with Daina Bonner on September 22 @ 3pm, then a phone call visit on September 29 @ 2:45pm.) Visit Report/Discharge Packet Instructions: Stand Alone Forms: Discharge: Care, Discharge: [place] [facility], Patient Portal/API, Stroke Signs & Symptoms Discharges patient from system. Discharge Date/Time: 09/17/24 09:30
[2024-09-17 08:06] VITALS: BP 106/64; PULSE 70; RESP 17; TEMP 36.7
== END 2024-09-17 09:30 | disposition home or self-care (01) | DRG 787 ==
PROVIDERS: Family Medicine; Admitting Provider Nurse Practitioner Obstetrics & Gynecology; Referring Provider Nurse Practitioner Obstetrics & Gynecology; Visit Provider Nurse Practitioner Obstetrics & Gynecology
PROC: 10D00Z1 Extraction of Products of Conception, Low, Open Approach (ICD-10-PCS; CPT 59514; principal; 2024-09-15 07:00)
DX: O76 Abnormality in fetal heart rate and rhythm complicating labor and delivery (principal); D62 Acute posthemorrhagic anemia; Z3A.39 39 weeks gestation of pregnancy; Z37.0 Single live birth; O90.81 Anemia of the puerperium
CPT/HCPCS: 36415; 59050; 59514; 85025; 86850; 86900; 86901; G0379; J0131; J1100; J1885; J2274; J2405; J2790

== ENCOUNTER → 2024-09-23 13:03 | Outpatient (CLI) | payer OTHER, SELFPAY ==
--- NOTE | 2024-09-23 13:40 | DI.US.S_ITS ---
PROCEDURE: US PERIPH VENOUS LOW EXTREM BI INDICATIONS: INCREASING RT THIGH LUMPS TECHNIQUE: Real-time imaging, as well as color and pulse Doppler interrogation, were performed of the deep veins of both legs from the inguinal ligament to the popliteal fossa, with documentation of the visualized calf veins. COMPARISON: None. FINDINGS: Right: The common femoral, femoral, popliteal, and the visualized calf veins are normally compressible, and free of intraluminal thrombus. Color and pulse Doppler demonstrate normal phasic intravascular flow. There is normal augmentation response to distal compression maneuver. In the region of the right palpable abnormality there is a superficial thrombophlebitis. This is located greater than 5 cm from the saphenofemoral junction. Left: The common femoral, femoral, popliteal, and the visualized calf veins are normally compressible, and free of intraluminal thrombus. Color and pulse Doppler demonstrate normal phasic intravascular flow. There is normal augmentation response to distal compression maneuver. IMPRESSION: 1. No right lower extremity DVT. 2. Right superficial thrombophlebitis at the palpable site. 3. No left lower extremity DVT. Dictated by: Edmar Dodd M.D. on 09/23/2024 at 16:48 Approved by: Edmar Dodd M.D. on 09/23/2024 at 16:51
== END ==
PROVIDERS: Referring Provider Advanced Practice Midwife; Visit Provider Advanced Practice Midwife
DX: I80.01 Phlebitis and thrombophlebitis of superficial vessels of right lower extremity (principal)
CPT/HCPCS: 93970